=== PATIENT | male | born 1945 | race Caucasian/White ===

== ENCOUNTER 2017-12-03 08:57 | Day surgery (SDC) | payer MEDICARE, OTHER, SELFPAY ==
--- NOTE | 2017-12-01 10:15 | POEE_ITS ---
History of Present Illness Chief Complaint: Progressive decreased vision, left eye Narrative: The patient is a 72-year-old gentleman who presented with progressive decreased vision in both eyes at both distance and near. He notes significant difficulty driving at night due to glare, left eye worse than right , over the past 1-1/2 years. On examination he was noted to have significant hyperopia with astigmatism and vertical muscle imbalance. He was also noted to have moderate nuclear cataracts in both eyes as well as pseudoexfoliation of the left eye. The option of cataract surgery was offered to the patient and he wished to proceed. In addition, the option of placing a toric astigmatism correcting lens implant was offered to the patient and he wished to proceed. NOTE: The Chief Complaint, HPI, Past Medical History, Past Surgical History, Family History, Social History, Medications, and complete Ophthalmic Exam with detailed Assessment and Plan have already been documented in the patient's outpatient ophthalmic record and are not covered again in detail here. 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) Meds Home Medications Medication Instructions Recorded Confirmed Type aspirin [Aspir 81] 81 mg PO DAILY tab-cap NS 07/22/14 11/28/17 History budesonide-formoterol [Symbicort 2 puff INHALATION BID inhaler NS 07/22/14 History 80-4.5 Mcg Inhaler] diphenhydramine HCl [Benadryl] 25 mg PO HS NS 07/22/14 11/28/17 History fluticasone 50 mcg NS PRN PRN spray NS 07/22/14 11/28/17 History hydrochlorothiazide 25 mg PO DAILY tab-cap NS 07/22/14 11/28/17 History levothyroxine [Synthroid] 1.5 tab PO DAILY NS 07/22/14 11/28/17 History potassium chloride 10 meq PO .QOD NS 07/22/14 11/28/17 History pramipexole 0.75 mg PO HS NS 07/22/14 11/29/17 History simvastatin 20 mg PO DAILY tab-cap NS 07/22/14 History baclofen 10 mg PO TID 11/28/17 11/28/17 History calcium carbonate [Calcium 500] 1,000 mg PO DAILY 11/28/17 11/28/17 History cholecalciferol (vitamin D3) 2,000 unit PO DAILY 11/28/17 11/28/17 History [Vitamin D3] clonazepam 0.5 mg PO HS 11/28/17 11/28/17 History losartan 50 mg PO DAILY 11/28/17 11/28/17 History magnesium 250 mg PO DAILY 11/28/17 11/28/17 History omega 4-zhv-ghv-fish oil [Fish Oil] 1 cap PO BID 11/28/17 11/28/17 History Allergies Allergy/AdvReac Type Severity Reaction Status Date / Time codeine Allergy Unverified 07/22/14 09:41 propranolol HCl Allergy Unverified 07/22/14 09:41 [From Inderal LA] tetanus toxoid, adsorbed Allergy Unverified 07/22/14 09:41 Exam OCULAR EXAM:: Visual acuity at distance: Corrected 20/20 right eye, 20/25 left eye. Pupils: Pupils are 2.5 mm, equal and reactive, without afferent defect. IOP: 20 OD 19 OS Extraocular Motility: Significant for a small angle vertical muscle imbalance Pertinent Slit Lamp Findings: Pupils dilate to 6 mm right eye, 5.5 mm left eye. A moderate 2+ nuclear cataract is present OD. 1+ nuclear cataract is present OS, but also with 1-2+ pseudoexfoliation on the anterior lens capsule. Dilated Funduscopic Examination: Disc cupping is 0.55 OD 0.60 with good color. The optic nerves have good perfusion and normal color. The retinal vasculature is normal without significant tortuosity or abnormality. The maculas are normal in appearance with normal contour and foveal reflex appropriate for age. The peripheral retina and vitreous are normal. BRIGHTNESS ACUITY TESTING (BAT):: Off left eye 20/25 Low: 20/25 Medium: 20/25 High: 20/25 Assessment and Plan (1) Nuclear sclerotic cataract of left eye: Current visit: No Status: Acute Assessment: Visually significant cataract, left eye. Plan: Cataract extraction with toric intraocular lens implantation, left eye (2) Hyperopia of left eye with astigmatism: Current visit: No Status: Acute Assessment: Visually significant cataract, left eye. Plan: Cataract extraction with toric intraocular lens implantation, left eye (3) Pseudoexfoliation (PXF) of left lens capsule: Current visit: No Status: Acute The increased difficulty of cataract surgery and the increased risk of possible intra- and post-operative complications in patients with pseudoexfoliation syndrome was discussed with the patient, Note: NOTE:: The details of the planned surgery, including the risks, indications, limitations,expectations,outcome and possible complications were explained to the patient. The patient understands the complications including, but not limited to: infection, hemorrhage, posterior dislocation of the lens or nuclear fragments which may require the intervention of a vitreoretinal surgeon, possible loss of the eye, or from anesthetic complications. The patient has been made aware of the option of not having surgery, that vision following surgery may not be equal to that prior to surgery, and that the planned surgery may not achieve the intended results. Following this discussion, which the patient appeared to understand, the patient wishes to proceed with cataract surgery with lens implantation of the affected eye to improve and maximize vision.
--- NOTE | 2017-12-02 13:44 | W.PM.OP ---
Operative Note PRE-OP DIAGNOSIS: Cataract, left eye POST-OP DIAGNOSIS: same PROCEDURE: Cataract extraction using phacoemulsification with intraocular lens implant, right eye SURGEON: Hang Connell ANESTHESIA: MAC and local (sub-tenon's anesthetic infiltration) PATHOLOGY: none sent COMPLICATIONS: None Patient was transported to: same day Patient's condition: stable Implants: [employer] / [employer] Tecnis [id number] Indications: Progressive decreased vision due to cataract, right eye Procedure Description: [] CATARACT SURGERY OPERATIVE REPORT PREOPERATIVE DIAGNOSIS: [] POSTOPERATIVE DIAGNOSIS: Same OPERATION: Cataract extraction using phacoemulsification with posterior chamber intraocular lens implant, right eye. IOL: IOL Patient Services Coordinator/Model: J&J Vision / ALEXANDER Tecnis [id number] IOL Power: +[] diopters IOL Serial Number: [] Optic Diameter: 6.0mm Haptic/Overall Diameter: 13.0mm PHACO INFO: DanieiKONVERSEurion Vision System with OZil and Active Fluidics Cumulative Dispersed Energy (CDE): [] seconds SURGEON: Hang Connell MD, SUSAN ANESTHESIA: Monitored Anesthesia Care (MAC), with local sub-tenon's anesthetic infiltration COMPLICATIONS: None SPECIMENS: None INDICATIONS FOR PROCEDURE: [] PROCEDURE: The correct surgical eye was identified and marked as the right eye and the pupil was dilated in the preoperative area using mydriatics, cycloplegics, and NSAIDS (except in aspirin allergic patients). The dilated pupil size was [] mm. Oral sedation was administered in the form of an Imprimis MKO Melt (midazolam 3mg/ketamine 25mg/ondansetron 2mg). The patient was brought to the operating room where cardiopulmonary monitoring was instituted and surgical time-out was performed, confirming the correct operative eye and IOL power. Topical anesthesia was administered and ophthalmic povidone-iodine 5% was instilled into the conjunctival fornices. Lidocaine gel was applied to the cornea and the irish-ocular area was prepped with Betadine 10% solution and draped in the usual sterile fashion for intraocular surgery. Steri-strips were used to cover the lashes and lid margins and an adhesive eye drape was placed. Care was taken to isolate the lashes and lid margins under the Steri-strips and adhesive eye drape. A lid speculum was placed between the lids of the operative eye and the Ashely-Rubio operating microscope was maneuvered into position. Ike scissors were then used to make a conjunctival buttonhole approximately 6mm posterior to the limbus in the inferonasal quadrant. Blunt dissection was carried out to expose bare sclera, and a blunt-tipped sub-tenon?s anesthesia cannula was introduced and passed posteriorly along the globe where non-preserved plain lidocaine was injected into posterior sub-Tenon?s space. A sideport knife was used to make a paracentesis port at the 7:00 postion and the anterior chamber was filled with Healon GV. A 2.4mm keratome knife was used to create a half-thickness groove at the limbus and then to construct a three-plane near-clear corneal tunnel extending 2.0mm into clear cornea at the 10:00 position. A flap was raised on the anterior capsule and capsulorhexis forceps were used to complete a continuous curvilinear capsulorhexis of []mm. Balanced salt solution was then used to perform cortical cleaving hydrodissection and nuclear hydrodelineation until the lens could be freely rotated within the capsular bag. The lens nucleus was then disassembled and removed within the capsular bag and iris plane using phacoemulsification. Residual cortical material was removed using the 45-degree angled silicone I/A tip with 0.3mm port. The posterior capsule was carefully polished to remove as much residual lens epithelial cells as safely possible. The capsular bag was then inflated and the anterior chamber deepened with viscoelastic. The lens implant described above was inserted into the capsular bag using the ALEXANDER [place] Injector. A Kuglen hook was used to dial the IOL into position. Residual viscoelastic was then removed first from posterior to the IOL, then from the anterior chamber using the I/A handpiece. The lens implant was noted to center nicely within the capsular bag. The incisions were stromally hydrated, and the anterior chamber was reformed using BSS. Then 0.4cc of moxifloxacin 1.5mg/ml were injected into the capsular bag and anterior chamber. The incisions were checked with a Weck spear and found to be secure. Several drops of ophthalmic povidone-iodine 5% were then applied to the eye followed by two drops of Imprimis combination moxifloxacin/dexamethasone solution. The drapes were removed and a clear plastic protective eye shield was placed over the eye. The patient was then returned to Same Day Surgery in stable condition.
--- NOTE | 2017-12-02 13:47 | ROE_ITS ---
Operative Note PRE-OP DIAGNOSIS: Cataract, left eye POST-OP DIAGNOSIS: same PROCEDURE: Cataract extraction using phacoemulsification with intraocular lens implant, right eye SURGEON: Hang Connell ANESTHESIA: MAC and local (sub-tenon's anesthetic infiltration) PATHOLOGY: none sent COMPLICATIONS: None Patient was transported to: same day Patient's condition: stable Implants: [employer] Vision / [employer] Tecnis [id number] Indications: Progressive decreased vision due to cataract, right eye Procedure Description: [] CATARACT SURGERY OPERATIVE REPORT PREOPERATIVE DIAGNOSIS: [] POSTOPERATIVE DIAGNOSIS: Same OPERATION: Cataract extraction using phacoemulsification with posterior chamber intraocular lens implant, right eye. IOL: IOL Shoe Polisher/Model: J&J Vision / ALEXANDER Tecnis [id number] IOL Power: +[] diopters IOL Serial Number: [] Optic Diameter: 6.0mm Haptic/Overall Diameter: 13.0mm PHACO INFO: DanieStudio Pangeaurion Vision System with OZil and Active Fluidics Cumulative Dispersed Energy (CDE): [] seconds SURGEON: Hang Connell MD, SUSAN ANESTHESIA: Monitored Anesthesia Care (MAC), with local sub-tenon's anesthetic infiltration COMPLICATIONS: None SPECIMENS: None INDICATIONS FOR PROCEDURE: [] PROCEDURE: The correct surgical eye was identified and marked as the right eye and the pupil was dilated in the preoperative area using mydriatics, cycloplegics, and NSAIDS (except in aspirin allergic patients). The dilated pupil size was [] mm. Oral sedation was administered in the form of an Imprimis MKO Melt (midazolam 3mg/ketamine 25mg/ondansetron 2mg). The patient was brought to the operating room where cardiopulmonary monitoring was instituted and surgical time-out was performed, confirming the correct operative eye and IOL power. Topical anesthesia was administered and ophthalmic povidone-iodine 5% was instilled into the conjunctival fornices. Lidocaine gel was applied to the cornea and the irish-ocular area was prepped with Betadine 10% solution and draped in the usual sterile fashion for intraocular surgery. Steri-strips were used to cover the lashes and lid margins and an adhesive eye drape was placed. Care was taken to isolate the lashes and lid margins under the Steri-strips and adhesive eye drape. A lid speculum was placed between the lids of the operative eye and the Ashely-Rubio operating microscope was maneuvered into position. Ike scissors were then used to make a conjunctival buttonhole approximately 6mm posterior to the limbus in the inferonasal quadrant. Blunt dissection was carried out to expose bare sclera, and a blunt-tipped sub-tenon? s anesthesia cannula was introduced and passed posteriorly along the globe where non-preserved plain lidocaine was injected into posterior sub-Tenon?s space. A sideport knife was used to make a paracentesis port at the 7:00 postion and the anterior chamber was filled with Healon GV. A 2.4mm keratome knife was used to create a half-thickness groove at the limbus and then to construct a three-plane near-clear corneal tunnel extending 2.0mm into clear cornea at the 10:00 position. A flap was raised on the anterior capsule and capsulorhexis forceps were used to complete a continuous curvilinear capsulorhexis of []mm. Balanced salt solution was then used to perform cortical cleaving hydrodissection and nuclear hydrodelineation until the lens could be freely rotated within the capsular bag. The lens nucleus was then disassembled and removed within the capsular bag and iris plane using phacoemulsification. Residual cortical material was removed using the 45-degree angled silicone I/A tip with 0.3mm port. The posterior capsule was carefully polished to remove as much residual lens epithelial cells as safely possible. The capsular bag was then inflated and the anterior chamber deepened with viscoelastic. The lens implant described above was inserted into the capsular bag using the ALEXANDER [place] Injector. A Kuglen hook was used to dial the IOL into position. Residual viscoelastic was then removed first from posterior to the IOL, then from the anterior chamber using the I/A handpiece. The lens implant was noted to center nicely within the capsular bag. The incisions were stromally hydrated , and the anterior chamber was reformed using BSS. Then 0.4cc of moxifloxacin 1.5mg/ml were injected into the capsular bag and anterior chamber. The incisions were checked with a Weck spear and found to be secure. Several drops of ophthalmic povidone-iodine 5% were then applied to the eye followed by two drops of Imprimis combination moxifloxacin/dexamethasone solution. The drapes were removed and a clear plastic protective eye shield was placed over the eye. The patient was then returned to Same Day Surgery in stable condition.
[2017-12-03 09:22] VITALS: BP 143/88; PULSE 68; RESP 18; TEMP 36.2; O2SAT 98
[2017-12-03] MEDS: Povidone-Iodine Ophth 30 ML BTL ×2 (10:57→11:28)
[2017-12-03] MEDS: Lidocaine 2% Jelly 6 ML SYR (10:59)
[2017-12-03] MEDS: Balanced Salt Soln.-PLUS 500 ML BAG (11:04)
[2017-12-03] MEDS: Lidocaine 1% Pres-Free 5 ML VIAL (11:04)
--- NOTE | 2017-12-03 11:38 | W.PM.DSUDISC ---
Discharge Plan Discharge Details Attending Provider: Hang Connell Primary Care Provider: NONE,NONE Home Meds and New Rx's Prescriptions: No Action potassium chloride 10 MEQ capsule, extended release 10 meq PO .QOD RF: 0 aspirin [Aspir-81] 81 MG tablet,delayed release (DR/EC) 81 mg PO DAILY RF: 0 levothyroxine [Synthroid] 88 MCG tablet 1.5 tab PO DAILY RF: 0 simvastatin 20 MG tablet 20 mg PO DAILY RF: 0 diphenhydramine HCl [Benadryl] 25 MG capsule 25 mg PO HS RF: 0 hydrochlorothiazide 25 MG tablet 25 mg PO DAILY RF: 0 fluticasone 16 GM spray,suspension 50 mcg NS PRN PRNRF: 0 budesonide-formoterol [Symbicort] 10.2 GM HFA aerosol inhaler 2 puff Inhalation BID RF: 0 pramipexole 0.75 MG tablet extended release 24 hr 0.75 mg PO HS RF: 0 losartan 50 mg Tablet 50 mg PO DAILY RF: 0 clonazepam 0.5 mg Tablet 0.5 mg PO HS RF: 0 calcium carbonate [Calcium 500] 500 mg calcium (1,250 mg) Tablet 1,000 mg PO DAILY RF: 0 baclofen 10 mg Tablet 10 mg PO TID RF: 0 magnesium 250 mg Tablet 250 mg PO DAILY RF: 0 cholecalciferol (vitamin D3) [Vitamin D3] 2,000 unit Capsule 2,000 unit PO DAILY RF: 0 omega 7-jon-czp-fish oil [Fish Oil] 1,000 mg (120 mg-180 mg) Capsule 1 cap PO BID RF: 0 Discharge Instructions Stand Alone Forms: Post-op Topical Cataract, Sherin Madrigal (DSU) DS: Diagnosis Discharge Diagnosis (1) Nuclear sclerotic cataract of left eye: Status: Resolved (2) Hyperopia of left eye with astigmatism: Status: Resolved (3) 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
--- NOTE | 2017-12-03 11:41 | ROE_ITS ---
Date of service: 12/03/17 Time of Service: 11:39 Operative Note DATE OF PROCEDURE: 12/03/17 PRE-OP DIAGNOSIS: Cataract, left eye, with corneal astigmatism POST-OP DIAGNOSIS: same SURGEON: Hang Connell ANESTHESIA: MAC (with local sub-tenon's anesthetic injection) PATHOLOGY: none sent COMPLICATIONS: None Patient was transported to: same day Patient's condition: stable Implants: Gavin [employer] Gavin Vision / ALEXANDER Tecnis [id number] Toric Intraocular Lens Indications: Progressive decreased vision due to cataract, left eye, with corneal astigmatism Procedure Description: [] CATARACT SURGERY OPERATIVE REPORT PREOPERATIVE DIAGNOSIS: 1. Nuclear cataract, left eye, symptomatic 2. Pseudoexfoliation, left eye 3. Significant hyperopic astigmatism, left eye POSTOPERATIVE DIAGNOSIS: Same OPERATION: Cataract extraction using phacoemulsification with posterior chamber toric intraocular lens implant, left eye. IOL: IOL Rural Carrier/Model: J&J Vision / ALEXANDER Tecnis [id number] IOL Power: +21.00 diopters sphere, +6.00 cylinder IOL Serial Number: [id number] Optic Diameter: 6.0mm Haptic/Overall Diameter: 13.00mm PHACO INFO: Danie Master The [employer]urion Vision System with OZil and Active Fluidics Cumulative Dispersed Energy (CDE): 10.47 seconds SURGEON: Hang Connell MD, SUSAN ANESTHESIA: Monitored Anesthesia Care (MAC), with local sub-tenon's anesthetic infiltration COMPLICATIONS: None SPECIMENS: None INDICATIONS FOR PROCEDURE: The patient is a 72-year old gentleman with history of significant hyperopia and astigmatism who has developed bilateral nuclear cataracts become increasingly symptomatic. He has pseudoexfoliation of the right eye. He was significantly symptomatic that he desired cataract surgery in the left eye to improve and maximize his vision, and desired implantation of an astigmatism correcting L to minimize postoperative corneal astigmatism. PROCEDURE: The correct surgical eye was identified and marked as the left eye and the pupil was dilated in the preoperative area using mydriatics, cycloplegics, and NSAIDS (except in aspirin allergic patients). The dilated pupil size was 6.0 mm. With the patient in the seated position, topical anesthetic was applied and a surgical marker was used to yadira the limbus at 6:00. A Surgilum Robomarker was then used to yadira the 0/180 degree reference axis. Oral sedation was administered in the form of an Imprimis MKO Melt (midazolam 3mg/ketamine 25mg/ ondansetron 2mg). The patient was brought to the operating room where cardiopulmonary monitoring was instituted and surgical time-out was performed, confirming the correct operative eye and IOL power. Topical anesthesia was administered and ophthalmic povidone-iodine 5% was instilled into the conjunctival fornices. Lidocaine gel was applied to the cornea and the irish-ocular area was prepped with Betadine 10% solution and draped in the usual sterile fashion for intraocular surgery. Steri-strips were used to cover the lashes and lid margins and an adhesive eye drape was placed. Care was taken to isolate the lashes and lid margins under the Steri-strips and adhesive eye drape. A lid speculum was placed between the lids of the operative eye and the Ashely-Rubio operating microscope was maneuvered into position. Ike scissors were then used to make a conjunctival buttonhole approximately 6mm posterior to the limbus in the inferonasal quadrant. Blunt dissection was carried out to expose bare sclera, and a blunt-tipped sub-tenon? s anesthesia cannula was introduced and passed posteriorly along the globe where non-preserved plain lidocaine was injected into posterior sub-Tenon?s space. A corneal ring gauge and axis marker were then used to yaidra the 0 degree position for the main phaco incision, and the 158/338 degree axis for alignment of the toric IOL. A sideport knife was used to make a paracentesis port at the 12:00 postion and the anterior chamber was filled with Healon GV. A 2.4mm keratome knife was used to create a half-thickness groove at the limbus and then to construct a three-plane near-clear corneal tunnel extending 2.0mm into clear cornea at the 0 degree axis. . A flap was raised on the anterior capsule and capsulorhexis forceps were used to complete a continuous curvilinear capsulorhexis of 5.0 mm. Balanced salt solution was then used to perform cortical cleaving hydrodissection and nuclear hydrodelineation until the lens could be freely rotated within the capsular bag. The lens nucleus was then disassembled and removed within the capsular bag and iris plane using phacoemulsification. Residual cortical material was removed using the 45-degree angled silicone I/A tip with 0.3mm port. The posterior capsule was carefully polished to remove as much residual lens epithelial cells as safely possible. The capsular bag was then inflated and the anterior chamber deepened with viscoelastic. The lens implant described above was inserted into the capsular bag using the ALEXANDER [place] Injector. A Kuglen hook was used to dial the IOL into position, about 10 degrees counterclockwise of its final alignment. Residual viscoelastic was then removed first from posterior to the IOL, then from the anterior chamber using the I/A handpiece. The I/A handpiece was then used to dial the IOL to the target axis. The lens implant was noted to center nicely within the capsular bag, with the toric IOL marvin aligned at the 158/338 degree axis. The incisions were stromally hydrated, and the anterior chamber was reformed using BSS. Then 0.4cc of moxifloxacin 1.5mg/ml were injected into the capsular bag and anterior chamber. The incisions were checked with a Weck spear and found to be secure. Several drops of ophthalmic povidone-iodine 5 % were then applied to the eye followed by two drops of Imprimis combination moxifloxacin/dexamethasone solution. The drapes were removed and a clear plastic protective eye shield was placed over the eye. The patient was then returned to Same Day Surgery in stable condition.
[2017-12-03 11:50] VITALS: BP 132/86; PULSE 68; RESP 16; TEMP 35.9; O2SAT 94
== END 2017-12-03 12:11 | disposition home or self-care (01) ==
LOC: SUR 08:58
PROVIDERS: Visit Provider Ophthalmology
PROC: (CPT 66984; principal; 2017-12-03 11:30)
DX: H25.12 Age-related nuclear cataract, left eye (principal); H26.8 Other specified cataract; H52.202 Unspecified astigmatism, left eye; K21.9 Gastro-esophageal reflux disease without esophagitis; I10 Essential (primary) hypertension
CPT/HCPCS: 66984; V2632

== ENCOUNTER 2017-12-17 06:51 | Day surgery (SDC) | payer MEDICARE, OTHER, SELFPAY ==
--- NOTE | 2017-12-15 08:55 | W.PIPPEYE ---
History of Present Illness Chief Complaint: Progressive decreased vision, right eye Narrative: The patient is a 72-year-old male with history of progressive decreased vision in both eyes at both distance and near. 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 He was noted to have significant bilateral cataracts and was symptomatic enough that he desired cataract surgery, which was performed in the left eye on 12/03/2017 with implantation of a toric IOL. Postoperatively, he has regained uncorrected vision of 20/25 in the left eye. He now presents for cataract surgery in the right eye. NOTE: The Chief Complaint, HPI, Past Medical History, Past Surgical History, Family History, Social History, Medications, and complete Ophthalmic Exam with detailed Assessment and Plan have already been documented in the patient's outpatient ophthalmic record and are not covered again in detail here. 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) Social History Smoking/Tobacco Use Status: Former Tobacco Use Meds Home Medications Medication Instructions Recorded Confirmed Type aspirin [Aspir 81] 81 mg PO DAILY tab-cap NS 07/22/14 12/03/17 History budesonide-formoterol [Symbicort 2 puff INHALATION BID inhaler NS 07/22/14 History 80-4.5 Mcg Inhaler] diphenhydramine HCl [Benadryl] 25 mg PO HS NS 07/22/14 12/03/17 History fluticasone 50 mcg NS PRN PRN spray NS 07/22/14 11/28/17 History hydrochlorothiazide 25 mg PO DAILY tab-cap NS 07/22/14 12/03/17 History levothyroxine [Synthroid] 1.5 tab PO DAILY NS 07/22/14 12/03/17 History potassium chloride 10 meq PO .QOD NS 07/22/14 12/03/17 History pramipexole 0.75 mg PO HS NS 07/22/14 12/03/17 History simvastatin 20 mg PO DAILY tab-cap NS 07/22/14 History baclofen 10 mg PO TID 11/28/17 12/03/17 History calcium carbonate [Calcium 500] 1,000 mg PO DAILY 11/28/17 12/03/17 History cholecalciferol (vitamin D3) 2,000 unit PO DAILY 11/28/17 12/03/17 History [Vitamin D3] clonazepam 0.5 mg PO HS 11/28/17 12/03/17 History losartan 50 mg PO DAILY 11/28/17 12/03/17 History magnesium 250 mg PO DAILY 11/28/17 12/03/17 History omega 0-aqg-zov-fish oil [Fish Oil] 1 cap PO BID 11/28/17 12/03/17 History Allergies Allergy/AdvReac Type Severity Reaction Status Date / Time codeine Allergy Unverified 12/03/17 09:16 propranolol HCl Allergy Unverified 12/03/17 09:16 [From Inderal LA] tetanus toxoid, adsorbed Allergy Unverified 12/03/17 09:16 Exam OCULAR EXAM:: Visual acuity at distance: Corrected visual acuity 20/20 right eye, uncorrected visual acuity 20/25 left eye. Pupils: Pupils equal, round, and reactive without afferent pupillary defect IOP: 20 OD, 10 OS. Extraocular Motility: Significant for a small angle vertical muscle imbalance Pertinent Slit Lamp Findings: Pupils dilate to 6 mm OD, 5.5 mm OS. A moderate 2+ nuclear cataract is present OD. A well-positioned toric PCIOL is present OS with clear posterior capsule. Dilated Funduscopic Examination: Disc cupping is 0.55 OD, 0.6 OS with good color. The optic nerves have good perfusion and normal color. The retinal vasculature is normal without significant tortuosity or abnormality. The maculas are normal in appearance with normal contour and foveal reflex appropriate for age. The peripheral retina and vitreous are normal. BRIGHTNESS ACUITY TESTING (BAT):: Off right eye 20/20 Low: 20/25 Medium: 20/25 High: 20/25 Assessment and Plan (1) Nuclear sclerotic cataract of right eye: Current visit: No Status: Acute Assessment: Visually significant cataract, right eye. Plan: Cataract extraction with intraocular lens implantation, right eye (2) Hyperopia of right eye with astigmatism: Current visit: No Status: Acute Assessment: High hyperopia with high astigmatism of the right eye, status post cataract extraction with lens implantation of a toric IOL left eye Plan: Cataract extraction with toric intraocular lens implant of the right eye (3) Anisometropia and aniseikonia: Current visit: No Status: Acute Assessment: Previous history of bilateral high hyperopia with high astigmatism, status post cataract extraction with toric IOL, left eye. Now has significant anisometropia due to the high hyperopia and astigmatism in the right eye. Plan: Cataract extraction with toric intraocular lens implant of the right eye will resolve the anisometropia and aniseikonia. Note: NOTE:: The details of the planned surgery, including the risks, indications,limitations,expectations,outcome and possible complications were explained to the patient. The patient understands the complications including, but not limited to: infection, hemorrhage, posterior dislocation of the lens or nuclear fragments which may require the intervention of a vitreoretinal surgeon, possible loss of the eye, or from anesthetic complications. The patient has been made aware of the option of not having surgery, that vision following surgery may not be equal to that prior to surgery, and that the planned surgery may not achieve the intended results. Following this discussion, which the patient appeared to understand, the patient wishes to proceed with cataract surgery with lens implantation of the affected eye to improve and maximize vision.
--- NOTE | 2017-12-15 09:06 | POEE_ITS ---
History of Present Illness Chief Complaint: Progressive decreased vision, right eye Narrative: The patient is a 72-year-old male with history of progressive decreased vision in both eyes at both distance and near. 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 He was noted to have significant bilateral cataracts and was symptomatic enough that he desired cataract surgery, which was performed in the left eye on 12/03/2017 with implantation of a toric IOL. Postoperatively, he has regained uncorrected vision of 20/25 in the left eye. He now presents for cataract surgery in the right eye. NOTE: The Chief Complaint, HPI, Past Medical History, Past Surgical History, Family History, Social History, Medications, and complete Ophthalmic Exam with detailed Assessment and Plan have already been documented in the patient's outpatient ophthalmic record and are not covered again in detail here. 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) Social History Smoking/Tobacco Use Status: Former Tobacco Use Meds Home Medications Medication Instructions Recorded Confirmed Type aspirin [Aspir 81] 81 mg PO DAILY tab-cap NS 07/22/14 12/03/17 History budesonide-formoterol [Symbicort 2 puff INHALATION BID inhaler NS 07/22/14 History 80-4.5 Mcg Inhaler] diphenhydramine HCl [Benadryl] 25 mg PO HS NS 07/22/14 12/03/17 History fluticasone 50 mcg NS PRN PRN spray NS 07/22/14 11/28/17 History hydrochlorothiazide 25 mg PO DAILY tab-cap NS 07/22/14 12/03/17 History levothyroxine [Synthroid] 1.5 tab PO DAILY NS 07/22/14 12/03/17 History potassium chloride 10 meq PO .QOD NS 07/22/14 12/03/17 History pramipexole 0.75 mg PO HS NS 07/22/14 12/03/17 History simvastatin 20 mg PO DAILY tab-cap NS 07/22/14 History baclofen 10 mg PO TID 11/28/17 12/03/17 History calcium carbonate [Calcium 500] 1,000 mg PO DAILY 11/28/17 12/03/17 History cholecalciferol (vitamin D3) 2,000 unit PO DAILY 11/28/17 12/03/17 History [Vitamin D3] clonazepam 0.5 mg PO HS 11/28/17 12/03/17 History losartan 50 mg PO DAILY 11/28/17 12/03/17 History magnesium 250 mg PO DAILY 11/28/17 12/03/17 History omega 6-jvz-bnr-fish oil [Fish Oil] 1 cap PO BID 11/28/17 12/03/17 History Allergies Allergy/AdvReac Type Severity Reaction Status Date / Time codeine Allergy Unverified 12/03/17 09:16 propranolol HCl Allergy Unverified 12/03/17 09:16 [From Inderal LA] tetanus toxoid, adsorbed Allergy Unverified 12/03/17 09:16 Exam OCULAR EXAM:: Visual acuity at distance: Corrected visual acuity 20/20 right eye , uncorrected visual acuity 20/25 left eye. Pupils: Pupils equal, round, and reactive without afferent pupillary defect IOP: 20 OD, 10 OS. Extraocular Motility: Significant for a small angle vertical muscle imbalance Pertinent Slit Lamp Findings: Pupils dilate to 6 mm OD, 5.5 mm OS. A moderate 2 + nuclear cataract is present OD. A well-positioned toric PCIOL is present OS with clear posterior capsule. Dilated Funduscopic Examination: Disc cupping is 0.55 OD, 0.6 OS with good color. The optic nerves have good perfusion and normal color. The retinal vasculature is normal without significant tortuosity or abnormality. The maculas are normal in appearance with normal contour and foveal reflex appropriate for age. The peripheral retina and vitreous are normal. BRIGHTNESS ACUITY TESTING (BAT):: Off right eye 20/20 Low: 20/25 Medium: 20/25 High: 20/25 Assessment and Plan (1) Nuclear sclerotic cataract of right eye: Current visit: No Status: Acute Assessment: Visually significant cataract, right eye. Plan: Cataract extraction with intraocular lens implantation, right eye (2) Hyperopia of right eye with astigmatism: Current visit: No Status: Acute Assessment: High hyperopia with high astigmatism of the right eye, status post cataract extraction with lens implantation of a toric IOL left eye Plan: Cataract extraction with toric intraocular lens implant of the right eye (3) Anisometropia and aniseikonia: Current visit: No Status: Acute Assessment: Previous history of bilateral high hyperopia with high astigmatism, status post cataract extraction with toric IOL, left eye. Now has significant anisometropia due to the high hyperopia and astigmatism in the right eye. Plan: Cataract extraction with toric intraocular lens implant of the right eye will resolve the anisometropia and aniseikonia. Note: NOTE:: The details of the planned surgery, including the risks, indications, limitations,expectations,outcome and possible complications were explained to the patient. The patient understands the complications including, but not limited to: infection, hemorrhage, posterior dislocation of the lens or nuclear fragments which may require the intervention of a vitreoretinal surgeon, possible loss of the eye, or from anesthetic complications. The patient has been made aware of the option of not having surgery, that vision following surgery may not be equal to that prior to surgery, and that the planned surgery may not achieve the intended results. Following this discussion, which the patient appeared to understand, the patient wishes to proceed with cataract surgery with lens implantation of the affected eye to improve and maximize vision.
[2017-12-17 07:10] VITALS: BP 146/88; PULSE 69; RESP 16; TEMP 35.6; O2SAT 97
[2017-12-17 07:14] VITALS: BP 146/88; PULSE 69; RESP 16; TEMP 35.6; O2SAT 97
[2017-12-17] MEDS: Lidocaine 2% Jelly 6 ML SYR (08:13)
[2017-12-17] MEDS: Balanced Salt Soln.-PLUS 500 ML BAG (08:16)
[2017-12-17] MEDS: Povidone-Iodine Ophth 30 ML BTL (08:36)
--- NOTE | 2017-12-17 08:41 | W.PM.DSUDISC ---
Discharge Plan Discharge Details Attending Provider: Hang Connell Primary Care Provider: NONE,NONE Home Meds and New Rx's Prescriptions: No Action potassium chloride 10 MEQ capsule, extended release 10 meq PO .QOD RF: 0 aspirin [Aspir-81] 81 MG tablet,delayed release (DR/EC) 81 mg PO DAILY RF: 0 levothyroxine [Synthroid] 88 MCG tablet 1.5 tab PO DAILY RF: 0 simvastatin 20 MG tablet 20 mg PO DAILY RF: 0 diphenhydramine HCl [Benadryl] 25 MG capsule 25 mg PO HS RF: 0 hydrochlorothiazide 25 MG tablet 25 mg PO DAILY RF: 0 fluticasone 16 GM spray,suspension 50 mcg NS PRN PRNRF: 0 budesonide-formoterol [Symbicort] 10.2 GM HFA aerosol inhaler 2 puff Inhalation BID RF: 0 pramipexole 0.75 MG tablet extended release 24 hr 0.75 mg PO HS RF: 0 losartan 50 mg Tablet 50 mg PO DAILY RF: 0 clonazepam 0.5 mg Tablet 0.5 mg PO HS RF: 0 calcium carbonate [Calcium 500] 500 mg calcium (1,250 mg) Tablet 1,000 mg PO DAILY RF: 0 baclofen 10 mg Tablet 10 mg PO TID RF: 0 magnesium 250 mg Tablet 250 mg PO DAILY RF: 0 cholecalciferol (vitamin D3) [Vitamin D3] 2,000 unit Capsule 2,000 unit PO DAILY RF: 0 omega 4-dxl-khn-fish oil [Fish Oil] 1,000 mg (120 mg-180 mg) Capsule 1 cap PO BID RF: 0 Discharge Instructions Stand Alone Forms: Post-op Topical Cataract, Sherin Madrigal (DSU) DS: Diagnosis Discharge Diagnosis (1) Nuclear sclerotic cataract of right eye: Status: Resolved (2) Hyperopia of right eye with astigmatism: Status: Resolved
--- NOTE | 2017-12-17 08:44 | W.PM.OP ---
Date of service: 12/17/17 Time of Service: 08:44 Operative Note DATE OF PROCEDURE: 12/17/17 PRE-OP DIAGNOSIS: Cataract, right eye, with corneal astigmatism POST-OP DIAGNOSIS: same PROCEDURE: Cataract extraction using phacoemulsification with toric intraocular lens implant, right eye SURGEON: Hang Connell ANESTHESIA: MAC (with local sub-tenon's anesthetic injection) PATHOLOGY: none sent COMPLICATIONS: None Patient was transported to: same day Patient's condition: stable Implants: [employer] / ALEXANDER Tecnis ZCT Toric Intraocular Lens Indications: Progressive decreased vision due to cataract, right eye, with corneal astigmatism Procedure Description: CATARACT SURGERY OPERATIVE REPORT PREOPERATIVE DIAGNOSIS: Nuclear cataract, right eye, symptomatic Significant hyperopic astigmatism POSTOPERATIVE DIAGNOSIS: Same OPERATION: Cataract extraction using phacoemulsification with posterior chamber toric intraocular lens implant, right eye. IOL: IOL Solar Pv Installer/Model: [employer] / ALEXANDER Tecnis ZCT 600 IOL Power: +22.50 diopters sphere, +6.00 cylinder IOL Serial Number: [id number] Optic Diameter: 6.0mm Haptic/Overall Diameter: 13.00mm PHACO INFO: Danie Circlefiveurion Vision System with OZil and Active Fluidics Cumulative Dispersed Energy (CDE): 7.03 seconds SURGEON: Hang Connell MD, SUSAN ANESTHESIA: Monitored Anesthesia Care (MAC), with local sub-tenon's anesthetic infiltration COMPLICATIONS: None SPECIMENS: None INDICATIONS FOR PROCEDURE: The patient is a 72-year-old gentleman with history of hyperopia with high astigmatism who has developed significant bilateral nuclear cataracts. 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 He underwent cataract surgery of the left eye with a toric intraocular lens implant on 12/03/2017. Postoperatively he has regained uncorrected vision of 20/25 in the left eye. He now presents for cataract surgery of the right eye with a toric intraocular lens implant. PROCEDURE: The correct surgical eye was identified and marked as the right eye and the pupil was dilated in the preoperative area using mydriatics, cycloplegics, and NSAIDS (except in aspirin allergic patients). The dilated pupil size was 8.0 mm. With the patient in the seated position, topical anesthetic was applied and a surgical marker was used to yadira the limbus at 6:00. A Surgilum Robomarker was then used to yadira the 0/180 degree reference axis. Oral sedation was administered in the form of an Imprimis MKO Melt (midazolam 3mg/ketamine 25mg/ondansetron 2mg). The patient was brought to the operating room where cardiopulmonary monitoring was instituted and surgical time-out was performed, confirming the correct operative eye and IOL power. Topical anesthesia was administered and ophthalmic povidone-iodine 5% was instilled into the conjunctival fornices. Lidocaine gel was applied to the cornea and the irish-ocular area was prepped with Betadine 10% solution and draped in the usual sterile fashion for intraocular surgery. Steri-strips were used to cover the lashes and lid margins and an adhesive eye drape was placed. Care was taken to isolate the lashes and lid margins under the Steri-strips and adhesive eye drape. A lid speculum was placed between the lids of the operative eye and the Ashely-Rubio operating microscope was maneuvered into position. Ike scissors were then used to make a conjunctival buttonhole approximately 6mm posterior to the limbus in the inferonasal quadrant. Blunt dissection was carried out to expose bare sclera, and a blunt-tipped sub-tenon?s anesthesia cannula was introduced and passed posteriorly along the globe where non-preserved plain lidocaine was injected into posterior sub-Tenon?s space. A corneal ring gauge and axis marker were then used to yadira the 145 degree position for the main phaco incision.and the 11/191 degree axis for alignment of the toric IOL. A sideport knife was used to make a paracentesis port at the 7:00 postion and the anterior chamber was filled with Healon GV. A 2.4mm keratome knife was used to create a half-thickness groove at the limbus and then to construct a three-plane near-clear corneal tunnel extending 2.0mm into clear cornea at the 145 degree axis. . A flap was raised on the anterior capsule and capsulorhexis forceps were used to complete a continuous curvilinear capsulorhexis of 5.5mm. Balanced salt solution was then used to perform cortical cleaving hydrodissection and nuclear hydrodelineation until the lens could be freely rotated within the capsular bag. The lens nucleus was then disassembled and removed within the capsular bag and iris plane using phacoemulsification. Residual cortical material was removed using the 45-degree angled silicone I/A tip with 0.3mm port. The posterior capsule was carefully polished to remove as much residual lens epithelial cells as safely possible. The capsular bag was then inflated and the anterior chamber deepened with viscoelastic. The lens implant described above was inserted into the capsular bag using the ALEXANDER [place] Injector. A Kuglen hook was used to dial the IOL into position, about 10 degrees counterclockwise of its final alignment. Residual viscoelastic was then removed first from posterior to the IOL, then from the anterior chamber using the I/A handpiece. The I/A handpiece was then used to dial the IOL to the target axis. The lens implant was noted to center nicely within the capsular bag, with the toric IOL marvin aligned at the 11191degree axis. The incisions were stromally hydrated, and the anterior chamber was reformed using BSS. Then 0.4cc of moxifloxacin 1.5mg/ml were injected into the capsular bag and anterior chamber. The incisions were checked with a Weck spear and found to be secure. Several drops of ophthalmic povidone-iodine 5% were then applied to the eye followed by two drops of Imprimis combination moxifloxacin/dexamethasone solution. The drapes were removed and a clear plastic protective eye shield was placed over the eye. The patient was then returned to Same Day Surgery in stable condition.
--- NOTE | 2017-12-17 08:47 | ROE_ITS ---
Date of service: 12/17/17 Time of Service: 08:44 Operative Note DATE OF PROCEDURE: 12/17/17 PRE-OP DIAGNOSIS: Cataract, right eye, with corneal astigmatism POST-OP DIAGNOSIS: same PROCEDURE: Cataract extraction using phacoemulsification with toric intraocular lens implant, right eye SURGEON: Hang Connell ANESTHESIA: MAC (with local sub-tenon's anesthetic injection) PATHOLOGY: none sent COMPLICATIONS: None Patient was transported to: same day Patient's condition: stable Implants: [employer] / ALEXANDER Tecnis ZCT Toric Intraocular Lens Indications: Progressive decreased vision due to cataract, right eye, with corneal astigmatism Procedure Description: CATARACT SURGERY OPERATIVE REPORT PREOPERATIVE DIAGNOSIS: Nuclear cataract, right eye, symptomatic Significant hyperopic astigmatism POSTOPERATIVE DIAGNOSIS: Same OPERATION: Cataract extraction using phacoemulsification with posterior chamber toric intraocular lens implant, right eye. IOL: IOL Self Propelled Hot Mix Roller Operator/Model: [employer] / ALEXANDER Tecnis ZCT 600 IOL Power: +22.50 diopters sphere, +6.00 cylinder IOL Serial Number: [id number] Optic Diameter: 6.0mm Haptic/Overall Diameter: 13.00mm PHACO INFO: [employer] Vision System with OZil and Active [employer]uidics Cumulative Dispersed Energy (CDE): 7.03 seconds SURGEON: Hang Connell MD, SUSAN ANESTHESIA: Monitored Anesthesia Care (MAC), with local sub-tenon's anesthetic infiltration COMPLICATIONS: None SPECIMENS: None INDICATIONS FOR PROCEDURE: The patient is a 72-year-old gentleman with history of hyperopia with high astigmatism who has developed significant bilateral nuclear cataracts. 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 He underwent cataract surgery of the left eye with a toric intraocular lens implant on 12/03/2017. Postoperatively he has regained uncorrected vision of 20/ 25 in the left eye. He now presents for cataract surgery of the right eye with a toric intraocular lens implant. PROCEDURE: The correct surgical eye was identified and marked as the right eye and the pupil was dilated in the preoperative area using mydriatics, cycloplegics, and NSAIDS (except in aspirin allergic patients). The dilated pupil size was 8.0 mm. With the patient in the seated position, topical anesthetic was applied and a surgical marker was used to yadira the limbus at 6:00. A Surgilum Robomarker was then used to yadira the 0/180 degree reference axis. Oral sedation was administered in the form of an Imprimis MKO Melt (midazolam 3mg/ketamine 25mg/ ondansetron 2mg). The patient was brought to the operating room where cardiopulmonary monitoring was instituted and surgical time-out was performed, confirming the correct operative eye and IOL power. Topical anesthesia was administered and ophthalmic povidone-iodine 5% was instilled into the conjunctival fornices. Lidocaine gel was applied to the cornea and the irish-ocular area was prepped with Betadine 10% solution and draped in the usual sterile fashion for intraocular surgery. Steri-strips were used to cover the lashes and lid margins and an adhesive eye drape was placed. Care was taken to isolate the lashes and lid margins under the Steri-strips and adhesive eye drape. A lid speculum was placed between the lids of the operative eye and the Ashely-Rubio operating microscope was maneuvered into position. Ike scissors were then used to make a conjunctival buttonhole approximately 6mm posterior to the limbus in the inferonasal quadrant. Blunt dissection was carried out to expose bare sclera, and a blunt-tipped sub-tenon? s anesthesia cannula was introduced and passed posteriorly along the globe where non-preserved plain lidocaine was injected into posterior sub-Tenon?s space. A corneal ring gauge and axis marker were then used to yadira the 145 degree position for the main phaco incision.and the 11/191 degree axis for alignment of the toric IOL. A sideport knife was used to make a paracentesis port at the 7:00 postion and the anterior chamber was filled with Healon GV. A 2.4mm keratome knife was used to create a half-thickness groove at the limbus and then to construct a three-plane near-clear corneal tunnel extending 2.0mm into clear cornea at the 145 degree axis. . A flap was raised on the anterior capsule and capsulorhexis forceps were used to complete a continuous curvilinear capsulorhexis of 5.5mm. Balanced salt solution was then used to perform cortical cleaving hydrodissection and nuclear hydrodelineation until the lens could be freely rotated within the capsular bag. The lens nucleus was then disassembled and removed within the capsular bag and iris plane using phacoemulsification. Residual cortical material was removed using the 45-degree angled silicone I/A tip with 0.3mm port. The posterior capsule was carefully polished to remove as much residual lens epithelial cells as safely possible. The capsular bag was then inflated and the anterior chamber deepened with viscoelastic. The lens implant described above was inserted into the capsular bag using the [employer]LEX[employer]ER [employer] Injector. A Kuglen hook was used to dial the IOL into position, about 10 degrees counterclockwise of its final alignment. Residual viscoelastic was then removed first from posterior to the IOL, then from the anterior chamber using the I/A handpiece. The I/A handpiece was then used to dial the IOL to the target axis. The lens implant was noted to center nicely within the capsular bag, with the toric IOL marvin aligned at the 11 191degree axis. The incisions were stromally hydrated, and the anterior chamber was reformed using BSS. Then 0.4cc of moxifloxacin 1.5mg/ml were injected into the capsular bag and anterior chamber. The incisions were checked with a Weck spear and found to be secure. Several drops of ophthalmic povidone-iodine 5 % were then applied to the eye followed by two drops of Imprimis combination moxifloxacin/dexamethasone solution. The drapes were removed and a clear plastic protective eye shield was placed over the eye. The patient was then returned to [facility] Day Surgery in stable condition.
[2017-12-17 09:05] VITALS: BP 139/86; PULSE 65; RESP 18; TEMP 36.5; O2SAT 94
== END 2017-12-17 09:15 | disposition home or self-care (01) ==
LOC: SUR 06:51
PROVIDERS: Visit Provider Ophthalmology
PROC: (CPT 66984; principal; 2017-12-17 08:30)
DX: H25.11 Age-related nuclear cataract, right eye (principal); H52.201 Unspecified astigmatism, right eye; Z98.42 Cataract extraction status, left eye; Z96.1 Presence of intraocular lens; G47.33 Obstructive sleep apnea (adult) (pediatric); I10 Essential (primary) hypertension; K21.9 Gastro-esophageal reflux disease without esophagitis
CPT/HCPCS: 66984; V2632